=== PATIENT | female | born 2005 ===

== ENCOUNTER → 2024-01-31 | Outpatient (CLI) | payer OTHER ==
[2024-02-02 05:08] LABS: Rubeola IgG Antibody 82.6 AU/mL (Immune >16.4)
== END | disposition home or self-care (01) ==
LOC: LAB 13:34
PROVIDERS: ATTEND Registered Nurse
DX: Z01.84 Encounter for antibody response examination (principal)
CPT/HCPCS: 36415; 86706; 86735; 86762; 86765; 86787

== ENCOUNTER → 2024-04-30 | Outpatient (CLI) | payer OTHER ==
[2024-05-01 08:07] LABS: Rubeola IgG Antibody 74.4 AU/mL (Immune >16.4)
== END | disposition home or self-care (01) ==
LOC: LAB 15:17
PROVIDERS: ATTEND Emergency Medicine
DX: Z01.84 Encounter for antibody response examination (principal)
CPT/HCPCS: 36415; 86706; 86735; 86762; 86765; 86787